=== PATIENT | female | born 2000 | race Two or more races ===

== ENCOUNTER 2021-03-22 13:49 | Inpatient (IN) | payer MEDICAID ==
[~2021-03-22] VITALS: Ht 152.4 cm; Wt 50.8 kg
--- NOTE | 2021-03-22 14:25 | NUR ---
Tabatha gibson in [facility] - 03/22/21 at 1445 by SHAN CALLED TO TRIAGE, NO ANSWER
[2021-03-22 14:26] LABS: BILIRUBIN,URINE Negative (NEGATIVE); COLOR,URINE YELLOW (YELLOW); LEUKOCYTE ESTERASE ,URINE Small (NEGATIVE); NITRITE, URINE Negative (NEGATIVE); PH,URINE 8.5 (5.0-8.0); PROTEIN,URINE Negative (NEGATIVE); UGLUCOSE Negative (NEGATIVE); UROBILINOGEN,URINE 0.2 EU/dL (0.2)
[2021-03-22 14:41] LABS: BACTERIA,URINE 1+ /HPF (None Seen); RBC,URINE NONE SEEN /HPF (0-2); SQUAMOUS EPITHELIAL CELL,UR Few /HPF (None Seen)
--- NOTE | 2021-03-22 15:20 | NUR ---
WOODS OVERSEER AT PT'S BEDSIDE
[2021-03-22 15:22] LABS: BASOPHILS # (AUTO) 0.1 K/uL (0.0-0.2); BASOPHILS % (AUTO) 1.1 % (0.0-2.0); HEMATOCRIT 39 % (33-45); HEMOGLOBIN 13.2 g/dL (11.5-14.8); LYMPHOCYTES # (AUTO) 2.5 K/uL (0.8-4.8); LYMPHOCYTES % (AUTO) 29.2 % (20.0-44.0); MEAN CORPUSCULAR HGB CONC 33 g/dl (31.0-36.0); MEAN CORPUSCULAR VOLUME 88 fL (82-100); MONOCYTES # (AUTO) 0.7 K/uL (0.1-1.30); MONOCYTES % (AUTO) 7.8 % (2.0-12.0); NEUTROPHILS # (AUTO) 5.3 K/uL (1.8-8.9); NEUTROPHILS % (AUTO) 60.9 % (43.0-81.0); PLATELET COUNT (AUTO) 318 K/uL (150-450); RED BLOOD CELL COUNT(AUTO) 4.48 MIL/uL (4.0-5.2); WHITE BLOOD COUNT (AUTO) 8.7 K/uL (4.3-11.0)
[2021-03-22 16:20] LABS: CALCIUM, SERUM 8.6 mg/dL (8.5-10.1); CREATININE 0.6 mg/dL (0.6-1.3); POTASSIUM 3.7 mmol/L (3.5-5.1)
[2021-03-22 16:35] LABS: BILIRUBIN,DIRECT 0.1 mg/dL (0.0-0.2); BILIRUBIN,TOTAL 0.3 mg/dL (0.2-1.0); TOTAL PROTEIN, SERUM 7.5 g/dL (6.4-8.2)
[2021-03-22] MEDS ORDERED: CEPH500C2 PO (17:31)
[2021-03-22] MEDS ORDERED: IBUP-1955 PO (17:31)
[2021-03-22] MEDS ORDERED: ONDA4TAB5 PO (17:31)
[2021-03-22] MEDS ORDERED: CT SWABBABLE VALVE TRANS SET 1 EA INFUS.SET MC ONE (17:37)
[2021-03-22] MEDS ORDERED: IV NS 0.9% 250 ML IV ONE (17:37)
[2021-03-22] MEDS ORDERED: IOHEXOL-300 100 ML VIAL IV ONE (17:37)
[2021-03-22] MEDS ORDERED: PIPERACILLIN /TAZOBACTAM 3.375 G in IV D5W 50 ML IV ONE (18:30)
[2021-03-22] MEDS ORDERED: IV NS 0.9% 1,000 ML IV ONE (18:30)
[2021-03-22] MEDS ORDERED: PIPERACILLIN /TAZOBACTAM 3.375 G VIAL IV ONE (18:32)
--- NOTE | 2021-03-22 20:21 | NUR ---
COVID SWAB DONE AND SENT TO THE LAB.
[2021-03-22] MEDS ORDERED: ONDANSETRON HCL/PF 4 MG/2 ML VIAL IVP PRN (21:00)
[2021-03-22] MEDS ORDERED: MORPHINE SULFATE INJ 2 MG/ML DISP.SYRIN IV PRN (21:00)
--- NOTE | 2021-03-22 21:41 | NUR ---
ROOM 324 MS
--- NOTE | 2021-03-22 22:00 | NUR ---
REPORT GIVEN TO CECY (THIEN).
--- NOTE | 2021-03-22 22:20 | NUR ---
MS MARINE CONSULTANT NOTE PATIENT BROUGHT IN AT THIS TIME VIA WHEELCHAIR. A/OX4 AND AMBULATORY WITH STEADY GAITS. PATIENT WISHES TO BE FULL CODE. PATIENT STATES THAT SHE IS UP TO DATE WITH HER FLU AND OTHER VACCINES SINCE SHE IS A [employer]. HAS [employer]. AC #20G-- WILL FOLLOW THROUGH ORDERS. SAFETY IN PLACE. WILL CONTINUE TO MONITOR PATIENT AND FOLLOW THROUGH CARE PLAN.
--- NOTE | 2021-03-22 22:21 | NUR ---
PT TRANSFERRED TO 3W.
--- NOTE | 2021-03-22 22:22 | NUR ---
MS EAR MACHINE OPERATOR NOTE V/S FOLLOWS: BP-91/64, HR-78, SATURATION 100, RR-14, T-98.0
[2021-03-22 22:42] VITALS: BP 91/64
[2021-03-22] MEDS: IV NS 0.9% 1,000 ML IV PRN (23:12)
--- NOTE | 2021-03-23 06:30 | NUR ---
MS RN CLOSING NOTE PATIENT INE BED WITH EYES CLOSED. EASY TO AROUSE. A/OX4. ABLE TO MAKES NEEDS KNOWN. AMBULATORY WITH STEADY GAIT. NO S/S OF APPARENT DISTRESS. PAIN AT TOLERABLE LEVEL RIGHT NOW AND NOT WANTING MEDICATION AT THIS TIME. SAFETY IN PLACE. IV NS RUNNING AT 75 ML/HR. WILL ENDORSE TO MORNING SHIFT RN FOR CONTINUITY OF CARE.
--- NOTE | 2021-03-23 07:30 | NUR ---
MS RN OPENING NOTES RECEIVED PATIENT AWAKE ON BED AND A/O X4. ON ROOM AIR BREATHING EVENLY AND UNLABORED. NOT IN DISTRESS. WITH NO COMPLAINTS OF PAIN OR DISCOMFORT AT THIS TIME. WITH IV ACCESS AT LEFT AC G20 WITH IVF NS AT 75ML/HR INFUSING WELL. SAFETY MEASURES IN PLACE. CALL LIGHT WITHIN REACH. BED ON LOWEST AND LOCKED POSITION, SIDE RAILS UP X2. WILL CONTINUE TO MONITOR.
[2021-03-23 07:44] LABS: BASOPHILS % (AUTO) 0.6 % (0.0-2.0); EOSINOPHILS % (AUTO) 1.5 % (0.0-6.0); HEMATOCRIT 36 % (33-45); HEMOGLOBIN 12.5 g/dL (11.5-14.8); LYMPHOCYTES # (AUTO) 2.5 K/uL (0.8-4.8); LYMPHOCYTES % (AUTO) 35.2 % (20.0-44.0); MEAN CORPUSCULAR HGB CONC 35 g/dl (31.0-36.0); MEAN CORPUSCULAR VOLUME 87 fL (82-100); MONOCYTES # (AUTO) 0.7 K/uL (0.1-1.30); MONOCYTES % (AUTO) 9.2 % (2.0-12.0); NEUTROPHILS # (AUTO) 3.8 K/uL (1.8-8.9); NEUTROPHILS % (AUTO) 53.5 % (43.0-81.0); PLATELET COUNT (AUTO) 261 K/uL (150-450); RED BLOOD CELL COUNT(AUTO) 4.17 MIL/uL (4.0-5.2); WHITE BLOOD COUNT (AUTO) 7.2 K/uL (4.3-11.0)
[2021-03-23 08:09] LABS: ALBUMIN 3.5 g/dL (3.4-5.0); BILIRUBIN,TOTAL 0.5 mg/dL (0.2-1.0); CREATININE 0.6 mg/dL (0.6-1.3); POTASSIUM 3.8 mmol/L (3.5-5.1); TOTAL PROTEIN, SERUM 6.7 g/dL (6.4-8.2)
[2021-03-23 08:38] VITALS: BP 107/64
[2021-03-23] MEDS: AMOX/CLAVULANATE 875 MG TABLET PO SCH ×2 (08:39→20:57)
[2021-03-23] MEDS ORDERED: HYDROMORPHONE INJ 2 MG/ML DISP.SYRIN ONE (10:06)
[2021-03-23] MEDS ORDERED: MIDAZOLAM HCL 2 MG/2ML VIAL ONE (10:07)
[2021-03-23] MEDS ORDERED: BUPIVACAINE MPF W/EPI 0.25% 30 ML VIAL ONE (10:15)
[2021-03-23] MEDS ORDERED: FAMOTIDINE/PF INJ 20 MG/2 ML VIAL IV ONE (10:18)
[2021-03-23] MEDS ORDERED: ROCURONIUM BROMIDE 50 MG/5 ML ONE (10:28)
[2021-03-23 11:30] VITALS: BP 90/50
[2021-03-23 12:00] VITALS: BP 100/60
[2021-03-23] MEDS: IV NS 0.9% 1,000 ML IV PRN (12:43)
[2021-03-23 13:00] VITALS: BP 112/60
[2021-03-23] MEDS: ACETAMINOPHEN 325 MG TABLET PO PRN (14:34)
[2021-03-23 17:20] VITALS: BP 112/60
--- NOTE | 2021-03-23 18:56 | NUR ---
MS RN CLOSING NOTES PATIENT AWAKE ON BED AND A/O X4. ON ROOM AIR BREATHING EVENLY AND UNLABORED. NOT IN DISTRESS. WITH NO COMPLAINTS OF PAIN OR DISCOMFORT AT THIS TIME. WITH IV ACCESS AT LEFT AC G20 WITH IVF NS AT 75ML/HR INFUSING WELL. DUE MEDS GIVEN. SAFETY MEASURES IN PLACE. CALL LIGHT WITHIN REACH. BED ON LOWEST AND LOCKED POSITION, SIDE RAILS UP X2. WILL ENDORSE TO NEXT SHIFT FOR JACOB.
--- NOTE | 2021-03-23 19:30 | NUR ---
MS RN OPENING NOTE RECEIVED PATIENT ALREADY AMBULATING IN THE HALLWAY. A/OX4. WITH STEADY GAITS. NOT EXHIBITING ANY S/S OF APPARENT DISTRESS. DENIES PAIN AT THIS TIME. ABLE TO MAKE NEEDS KNOWN. WILL CONTINUE TO MONITOR.
[2021-03-23 20:00] VITALS: BP 111/65
[2021-03-24] MEDS: ACETAMINOPHEN 325 MG TABLET PO PRN ×2 (06:08→16:27)
--- NOTE | 2021-03-24 06:41 | NUR ---
MS RN CLOSING NOTE PATIENT IN BED WITH EYES CLOSED. A/OX4. AMBULATORY WITH STEADY GAITS AND ABLE TO MAKE NEEDS KNOWN. NO S/S OF APPARENT DISTRESS. PAIN MANAGED WITH MEDICATIONS AND ICE PACK. ALL NEEDS ATTENDED. ALL SCHEDULED MEDICATION ADMINISTERED. DRESSING DRY AND INTACT. IV FLUIDS ON HOLD PER PATIENT REQUEST. WILL ENDORSED TO MORNING SHIFT RN FOR CONTINUITY OF CARE.
[2021-03-24 07:06] LABS: BASOPHILS % (AUTO) 0.3 % (0.0-2.0); HEMATOCRIT 35 % (33-45); HEMOGLOBIN 11.9 g/dL (11.5-14.8); LYMPHOCYTES % (AUTO) 16.9 % (20.0-44.0); MEAN CORPUSCULAR HGB CONC 34 g/dl (31.0-36.0); MEAN CORPUSCULAR VOLUME 87 fL (82-100); MONOCYTES % (AUTO) 8.2 % (2.0-12.0); NEUTROPHILS # (AUTO) 8.8 K/uL (1.8-8.9); NEUTROPHILS % (AUTO) 74.6 % (43.0-81.0); PLATELET COUNT (AUTO) 290 K/uL (150-450); WHITE BLOOD COUNT (AUTO) 11.8 K/uL (4.3-11.0)
[2021-03-24 07:16] LABS: CALCIUM, SERUM 8.4 mg/dL (8.5-10.1); CREATININE 0.6 mg/dL (0.6-1.3)
--- NOTE | 2021-03-24 07:30 | NUR ---
MS RN OPENING NOTES RECEIVED PATIENT SITTING ON BED, AWAKE AND A/O X4. ON ROOM AIR BREATHING EVENLY AND UNLABORED. NOT IN DISTRESS. WITH NO COMPLAINTS OF PAIN OR DISCOMFORT AT THIS TIME. WITH IV ACCESS AT LEFT AC G20 WITH NS AT 75ML/HR INFUSING WELL. SAFETY MEASURES IN PLACE. CALL LIGHT WITHIN REACH. BED ON LOWEST LOCKED POSITION, SIDE RAILS UP X2. WILL CONTINUE TO MONITOR.
[2021-03-24 08:00] VITALS: BP 91/73
[2021-03-24] MEDS: AMOX/CLAVULANATE 875 MG TABLET PO SCH ×2 (08:18→21:44)
[2021-03-24 16:00] VITALS: BP 99/56
--- NOTE | 2021-03-24 19:07 | NUR ---
MS RN CLOSING NOTES PATIENT RESTING ON BED, AWAKE AND A/O X4. ON ROOM AIR BREATHING EVENLY AND UNLABORED. NOT IN DISTRESS. WITH NO COMPLAINTS OF PAIN OR DISCOMFORT AT THIS TIME. WITH IV ACCESS AT LEFT AC G20 WITH NS AT 75ML/HR INFUSING WELL. DUE MEDS GIVEN. SAFETY MEASURES IN PLACE. CALL LIGHT WITHIN REACH. BED ON LOWEST LOCKED POSITION, SIDE RAILS UP X2. WILL ENDORSE TO NEXT SHIFT FOR JACOB.
[2021-03-24 20:00] VITALS: BP 98/64
--- NOTE | 2021-03-24 20:00 | NUR ---
MS RN OPENING NOTES: RECEIVED PATIENT AWAKE IN BED, A/O X4 BATH ROOM PRIVILEGES, BED IN UBALDO POSITION, CALL LIGHTS WITHIN REACH, NO COMPLAIN OF PAIN AND DISCOMFORT AT THIS TIME,IV LINE AT LAC#20 WITH ONGOING 0.9NSS@75ML PER HOUR INFUSING WELL PATIENT KEPT CLEAN AND DRY, ALL NEEDS MET WILL CONTINUE TO MONITOR.
[2021-03-25] MEDS: IV NS 0.9% 1,000 ML IV PRN (05:34)
[2021-03-25 06:48] LABS: BASOPHILS # (AUTO) 0.1 K/uL (0.0-0.2); BASOPHILS % (AUTO) 0.8 % (0.0-2.0); EOSINOPHILS % (AUTO) 1.5 % (0.0-6.0); HEMATOCRIT 33 % (33-45); HEMOGLOBIN 11.7 g/dL (11.5-14.8); LYMPHOCYTES # (AUTO) 3.4 K/uL (0.8-4.8); MEAN CORPUSCULAR HGB CONC 35 g/dl (31.0-36.0); MEAN CORPUSCULAR VOLUME 87 fL (82-100); MONOCYTES # (AUTO) 0.7 K/uL (0.1-1.30); MONOCYTES % (AUTO) 9.7 % (2.0-12.0); NEUTROPHILS # (AUTO) 3.2 K/uL (1.8-8.9); PLATELET COUNT (AUTO) 250 K/uL (150-450); RED BLOOD CELL COUNT(AUTO) 3.83 MIL/uL (4.0-5.2); WHITE BLOOD COUNT (AUTO) 7.5 K/uL (4.3-11.0)
[2021-03-25 07:13] LABS: CREATININE 0.6 mg/dL (0.6-1.3); PHOSPHORUS 4.1 mg/dL (2.5-4.9); POTASSIUM 3.9 mmol/L (3.5-5.1)
--- NOTE | 2021-03-25 07:22 | NUR ---
MS RN NOTES: PATIENT SLEEP IN BED COMFORTABLY, AROUSABLE TO VERBAL STIMULI, BED IN LOW POSITION, CALL LIGHTS WITHIN REACH, NO COMPLAIN OF PAIN AND DISCOMFORT AT THIS TIME, PATIENT IS A/O X4 AMBULATORY, ON RA SATURATING WELL,NO SOB WAS OBSERVED, PATIENT KEPT CLEAN AND RY, ALL NEEDS MET, WILL CONTINUE TO MONITOR.
--- NOTE | 2021-03-25 07:30 | NUR ---
RN MS NOTES PT IN BED, ASLEEP, EASY TO AROUSE, ALERT AND ORIENTED, NO COMPLAINT OF PAIN OR ANY DISCOMFORT AT THIS TIME, RESPIRATIONS NORMAL, TOLERATES ROOM AIR, IV FLUIDS INFUSING WELL, AMBULATES TO THE BATHROOM WITH STEADY GAIT, NEEDS ATTENDED.
[2021-03-25 08:00] VITALS: BP 98/63
[2021-03-25] MEDS: AMOX/CLAVULANATE 875 MG TABLET PO SCH ×2 (08:40→21:16)
[2021-03-25] MEDS: ACETAMINOPHEN 325 MG TABLET PO PRN ×2 (10:07→21:46)
[2021-03-25 15:55] VITALS: BP 97/63
--- NOTE | 2021-03-25 18:14 | NUR ---
RN MS NOTES PT AWAKE, ALERT AND ORIENTED, DENIES PAIN AT THIS TIME, AMBULATES ALONG THE HALLWAY WITH SLOW AND STEADY GAIT, SEEN AND EXAMINED BY DR. GALINDO TODAY, PLAN OF CARE DISCUSSED WITH PT, VERBALIZED UNDERSTANDING, IV FLUIDS INFUSING WELL, CALL LIGHT WITHIN REACH.
[2021-03-25 20:00] VITALS: BP 125/59
--- NOTE | 2021-03-25 20:45 | NUR ---
MS RN NOTES RECEIVED WALKING AROUND ON THE HALLWAYS,ALERT,ORIENTED X4,ABLE TO EAT NORMALLY,ABLE TO DRINK A LOT OF FLUIDS,VOIDING FREELY IN THE TOILET,HAD BM IN THE MORNING.REFUSED IVF FOR NOW.D/C PLANNING AWAITING BLOOD CULTURES RESULT.CALL LIGHT IN REACH,NEEDS ANTICIPATED.
--- NOTE | 2021-03-25 21:46 | NUR ---
MS RN NOTES C/O MILD ABDOMINAL PAIN,TYLENOL 650MG PO GIVEN PER PATIENT REQUEST
[2021-03-26 06:46] LABS: BASOPHILS # (AUTO) 0.1 K/uL (0.0-0.2); BASOPHILS % (AUTO) 0.7 % (0.0-2.0); HEMATOCRIT 37 % (33-45); HEMOGLOBIN 12.5 g/dL (11.5-14.8); LYMPHOCYTES # (AUTO) 3.3 K/uL (0.8-4.8); LYMPHOCYTES % (AUTO) 41.4 % (20.0-44.0); MEAN CORPUSCULAR HGB CONC 34 g/dl (31.0-36.0); MEAN CORPUSCULAR VOLUME 87 fL (82-100); MONOCYTES # (AUTO) 0.7 K/uL (0.1-1.30); MONOCYTES % (AUTO) 8.3 % (2.0-12.0); NEUTROPHILS # (AUTO) 3.8 K/uL (1.8-8.9); NEUTROPHILS % (AUTO) 47.6 % (43.0-81.0); PLATELET COUNT (AUTO) 264 K/uL (150-450); RED BLOOD CELL COUNT(AUTO) 4.21 MIL/uL (4.0-5.2)
[2021-03-26 07:07] LABS: CALCIUM, SERUM 8.8 mg/dL (8.5-10.1); CREATININE 0.7 mg/dL (0.6-1.3); PHOSPHORUS 4.6 mg/dL (2.5-4.9); POTASSIUM 3.9 mmol/L (3.5-5.1)
--- NOTE | 2021-03-26 07:14 | NUR ---
MS RN NOTES SLEPT WELL AT NIGHT,PAIN IMPROVED WITH TYLENOL,AWAITING BLOOD CULTURES RESULT AND IF RESULT IS NEGATIVE,POSSIBLE DISCHARGE.REPORT GIVEN TO ЕЛЕНА NEUMANN FOR JACOB.
[2021-03-26 08:00] VITALS: BP 104/56
--- NOTE | 2021-03-26 08:03 | NUR ---
MS RN OPENING NOTES RECEIVED PATIENT IN BED, AWAKE, A/O X4. PATIENT ON ROOM AIR; BREATHING EVEN AND UNLABORED AT THIS TIME; NO SOB NOTED. NO COMPLAINS OF PAIN. IV ACCESS ON LAC G # 20 PRESENT AND INTACT;SL. SAFETY PRECAUTIONS IN PLACE; BED IN LOW POSITION AND LOCKED, RAILS UP X2, CALL LIGHT WITHIN REACH. WILL CONTINUE TO MONITOR PATIENT.
[2021-03-26] MEDS: AMOX/CLAVULANATE 875 MG TABLET PO SCH (08:13)
--- NOTE | 2021-03-26 12:22 | NUR ---
MS DIRECTOR GEOPHYSICAL LABORATORY NOTES PATIENT DISCHARGED HOME IN MEDICALLY STABLE CONDITION. PATIENT A/O X4 ABLE TO MAKE NEEDS KNOWN. ALL DISCHARGE DOCUMENTATIONS READY AND PHYSICIAN INSTRUCTIONS PROVIDED TO PATIENT; PATIENT VERBALIZED UNDERSTANDING. ALL PAPERWORK SIGNED. CLOTHES AND BELONGINGS ACCOUNTED FOR AND FORM SIGNED WELL. IV ACCESS REMOVED PRIOR PATIENT LEAVING THE FLOOR. PRESCRIPTION DOCUMENTATION PROVIDED. PATIENT LEFT THE FLOOR VIA WHEELCHAIR AT 1220 ACCOMPANIED BY RN AND FATHER. PATIENT LEFT THE HOSPITAL VIA PRIVATE CAR.
== END 2021-03-26 12:17 | disposition home or self-care (01) | DRG 234 ==
LOC: ER 13:53 → MED 21:50
PROVIDERS: ADMIT Internal Medicine; ATTEND Student in an Organized Health Care Education/Training Program
PROC: 0DTJ4ZZ Resection of Appendix, Percutaneous Endoscopic Approach (ICD-10-PCS; principal; 2021-03-23)
DX: K35.80 Unspecified acute appendicitis (principal); D72.829 Elevated white blood cell count, unspecified; Z20.822 Contact with and (suspected) exposure to COVID-19
CPT/HCPCS: 36415; 80048-TC; 80053-TC; 80076-TC; 81001; 83690-TC; 83735-TC; 84100-TC; 84703-TC; 85025-TC; 85652-TC; 86140-TC; 87040-TC; 87081-TC; 87086-TC; 88304-TC; C9803; G0378; J1170; J2250; J2270; J2405; J2543; J3490; J7030; J7050; J7060; Q9967

== ENCOUNTER 2021-08-28 20:26 | Emergency (ER) | payer MEDICAID ==
[~2021-08-28] VITALS: Ht 152.4 cm; Wt 59.0 kg
--- NOTE | 2021-08-28 20:59 | NUR ---
TO ER BED 9. BIBS C/O HEADACHE AND DIZZYNESS X THIS MORNING. PT TOOK ADVIL AT 8AM WITH LITTLE RELIEF. PT STATES "FEELS LIKE ROOM IS SPINNING". NO FACIAL DROOP NOTED. NO WEAKNESS ON EXTREMITIES. DENIES ANY CHEST PAIN. CONNECTED TO MONITOR. AWAITING MD CAO
[2021-08-28] MEDS ORDERED: METOCLOPRAMIDE HCL 10 MG/2 ML VIAL IV ONE (21:00)
[2021-08-28] MEDS ORDERED: diphenhydrAMINE HCL 50 MG/ML VIAL IV ONE (21:00)
[2021-08-28] MEDS ORDERED: KETOROLAC TROMETHAMINE INJ 30 MG/ML VIAL IV ONE (21:00)
[2021-08-28] MEDS ORDERED: LORAZEPAM INJ 2 MG/ML VIAL IV ONE (21:00)
[2021-08-28] MEDS ORDERED: IV NS 0.9% 500 ML BAG IV ONE (21:00)
--- NOTE | 2021-08-28 21:00 | NUR ---
IV LINE ESTABLISHED RAC 20G
[2021-08-28] MEDS ORDERED: KETOROLAC TROMETHAMINE 15 MG/ML VIAL ONE (21:01)
[2021-08-28] MEDS ORDERED: METOCLOPRAMIDE HCL 10 MG/2 ML VIAL ONE (21:01)
[2021-08-28] MEDS ORDERED: diphenhydrAMINE HCL 50 MG/ML VIAL ONE (21:01)
[2021-08-28] MEDS ORDERED: LORAZEPAM INJ 2 MG/ML VIAL ONE (21:02)
[2021-08-28] MEDS ORDERED: DIAZ5TAB PO (21:41)
--- NOTE | 2021-08-28 22:18 | NUR ---
IV removed. Catheter intact and site benign. Pressure and 4x4 applied to site. No bleeding noted.
--- NOTE | 2021-08-28 22:19 | NUR ---
Patient discharged to home in stable condition. Written and verbal after care instructions given. Patient verbalizes understanding of instruction.
[2021-08-28 22:20] VITALS: BP 118/80
== END 2021-08-28 22:20 | disposition home or self-care (01) ==
LOC: ER 20:33
DX: R51.9 Headache, unspecified (principal); R42 Dizziness and giddiness; Z91.018 Allergy to other foods
CPT/HCPCS: 96374; 96375; 99284; J1200; J1885; J2060; J2765; J7040 ×2